=== PATIENT | female | born 1995 | race Caucasian/White ===

== ENCOUNTER 2018-03-15 14:16 | Emergency (ER) | payer OTHER ==
[2018-03-15 14:26] VITALS: RESP 18; TEMP 98.7
--- NOTE | 2018-03-15 15:42 | RAD ---
Date of service: 03/15/2018 PROCEDURE: Left Ankle Radiographs. HISTORY: Left ankle pain swelling r/o fx COMPARISON: None FINDINGS: BONES: Bone alignment and mineralization are normal. There is no acute displaced fracture or bone destruction. There is an os trigonum. JOINTS: Normal. Ankle mortise maintained. Talar dome intact SOFT TISSUES: Mild lateral soft tissue swelling. OTHER FINDINGS: None. IMPRESSION: No acute displaced fracture or dislocation. Mild lateral soft tissue swelling.
[2018-03-15 16:10] VITALS: BP 122/68; PULSE 67; O2SAT 96
--- NOTE | 2018-03-15 19:27 | C.PDOC ---
History Of Present Illness 22 year old female presents to the emergency department with complaints of twisting her left ankle today. Patient states that she was wearing heels and walking, when her heel got caught in the ground and resulted in her twisting her ankle. She has no other complaints, and denies falling to the ground, or knee pain. Time Seen by Provider: 03/15/18 15:05 Chief Complaint (Nursing): Lower Extremity Problem/Injury History Per: Patient History/Exam Limitations: no limitations Onset/Duration Of Symptoms: Hrs Current Symptoms Are (Timing): Still Present - Ankle/Foot Description Of Injury: Twisted Past Medical History Reviewed: Historical Data, Nursing Documentation, Vital Signs Vital Signs: Last Vital Signs Temp 98.7 F 03/15/18 14:24 Pulse 67 03/15/18 16:09 Resp 18 03/15/18 16:09 BP 122/68 03/15/18 16:09 Pulse Ox 96 03/15/18 19:28 - Medical History PMH: No Chronic Diseases Surgical History: No Surg Hx Family History: States: No Known Family Hx - Social History Hx Alcohol Use: No Hx Substance Use: No - Immunization History Hx Tetanus Toxoid Vaccination: No Hx Influenza Vaccination: No Hx Pneumococcal Vaccination: No Review Of Systems Except As Marked, All Systems Reviewed And Found Negative. Musculoskeletal: Positive for: Foot Pain (left ankle). Negative for: Leg Pain ( knee) Neurological: Negative for: Weakness, Numbness Physical Exam - Physical Exam Appears: Non-toxic, No Acute Distress Skin: Warm, Dry Head: Atraumatic, Normacephalic Eye(s): bilateral: Normal Inspection Neck: Normal, Supple Chest: Symmetrical, No Tenderness Extremity: No Tenderness (fibular head tenderness), Swelling (to the lateral aspect of the left ankle) Neurological/Psych: Oriented x3, Normal Speech, Normal Cognition ED Course And Treatment O2 Sat by Pulse Oximetry: 96 (RA) Pulse Ox Interpretation: Normal - Other Rad XR Left Ankle X-Ray: Viewed By Me, Read By Radiologist Interpretation: IMPRESSION: No acute displaced fracture or dislocation. Mild lateral soft tissue swelling. Progress Note: Plan: XR Ankle 3 Views Disposition - Disposition Referrals: [facility], [Non-Staff] - Disposition: HOME/ ROUTINE Disposition Time: 15:50 Condition: GOOD Additional Instructions: TEOFILO WARNER, thank you for letting us take care of you today. Your provider was Hernando Wadsworth DO and you were treated for LEFT ANKLE PAIN/FALL. The emergency medical care you received today was directed at your acute symptoms. If you were prescribed any medication, please fill it and take as directed. It may take several days for your symptoms to resolve. Return to the Emergency Department if your symptoms worsen, do not improve, or if you have any other problems. Please contact your doctor or call one of the physicians/clinics you have been referred to that are listed on the Patient Visit Information form that is included in your discharge packet. Bring any paperwork you were given at discharge with you along with any medications you are taking to your follow up visit. Our treatment cannot replace ongoing medical care by a primary care provider outside of the emergency department. Thank you for allowing the [facility] team to be part of your care today. Follow up with your primary care doctor in 5-7 days if you have any concerns. Instructions: Ankle Sprain (DC) Forms: [facility] ([place]) - Clinical Impression Clinical Impression: Ankle sprain - Scribe Statement The provider has reviewed the documentation as recorded by the Scribe (Brice Syed) Provider Attestation: All medical record entries made by the Scribe were at my direction and personally dictated by me. I have reviewed the chart and agree that the record accurately reflects my personal performance of the history, physical exam, medical decision making, and the department course for this patient. I have also personally directed, reviewed, and agree with the discharge instructions and disposition.
== END 2018-03-15 16:10 | disposition home or self-care (01) ==
LOC: C.ER 14:16
DX: S93.402A Sprain of unspecified ligament of left ankle, initial encounter (principal); X50.9XXA Other and unspecified overexertion or strenuous movements or postures, initial encounter